=== PATIENT | female | born 1990 | race Caucasian/White ===

== ENCOUNTER 2021-07-17 07:34 | Observation (INO) ==
[2021-07-17] MEDS ORDERED: methylPREDNISolone 125 MG/2 ML VIAL IVP ONE (07:45)
[2021-07-17] MEDS ORDERED: Ipratropium/Albuterol Neb 3 ML IH ONE (07:45)
[2021-07-17] MEDS ORDERED: levoFLOXacin 750 MG/150 ML 750 MG/150 ML BAG IVPB ONE ×2 (07:45→11:49)
[2021-07-17 08:36] LABS: Basophils # 0.1 K/mcL (0.0-0.2); Basophils % 0.4 %; Eosinophils # 0.7 K/mcL (0.0-0.6); Hematocrit 42.3 % (35.3-44.9); Hemoglobin 13.6 g/dL (11.5-15.4); Immature Granulocytes % 0.3 % (0-4); Lymphocytes # 1.3 K/mcL (0.6-4.6); Mean Corpuscular HGB Conc 32.2 g/dL (31.6-35.5); Mean Corpuscular Hemoglobin 29.6 pg (28.0-33.3); Mean Corpuscular Volume 92.2 fL (83.0-100.0); Mean Platelet Volume 9.3 fL (9.4-12.4); Monocytes # 0.6 K/mcL (0.0-1.3); Monocytes % 4.7 %; Neutrophils # 9.5 K/mcL (1.6-8.9); Platelet Count 397 K/mcL (140-400); Red Blood Count 4.59 M/mcL (3.82-4.97); Red Cell Distribution Width 13.5 % (11.5-14.5); Segmented Neutrophils % 77.6 %; White Blood Count 12.2 K/mcL (4.3-11.1)
[2021-07-17 08:53] LABS: BUN/Creatinine Ratio 10 (6-26); Blood Urea Nitrogen 8 mg/dL (6-20); Calcium 9.8 mg/dL (8.6-10.3); Carbon Dioxide 26 mEq/L (23-29); Chloride 106 mEq/L (98-107); Glucose 109 mg/dL (70-105); Osmolality,Calculated 289 (280-300); Potassium 3.8 mEq/L (3.5-5.1); Sodium 140 mEq/L (136-145); Troponin I < 0.03 ng/mL (< 0.04); eGFR For African Americans > 60 (> 60); eGFR For Non-African Americans > 60 (> 60)
[2021-07-17 09:22] LABS: Bilirubin,Urine Negative (Negative); Blood,Urine Negative (Negative); Clarity,Urine Clear (Clear); Color,Urine Light-Yellow (Yellow); Glucose,Urine (UA) Normal (Normal); Ketones,Urine Negative (Negative); Leukocyte Esterase,Urine Negative (Negative); Nitrite,Urine Negative (Negative); Protein,Urine Negative (Neg-Trace); Specific Gravity,Urine 1.019 (1.010-1.025); Squamous Epithelial Cell,Urine Few per hpf (None-Few); Urobilinogen,Urine Normal (Normal); WBC,Urine 0-3 per hpf (0-3)
[2021-07-17 09:23] LABS: Adenovirus Not Detected (Not Detect); Bordetella Pertussis Not Detected (Not Detect); Chlamydophila pneumoniae Not Detected (Not Detect); Coronavirus 229E Not Detected (Not Detect); Coronavirus HKU1 Not Detected (Not Detect); Coronavirus NL63 Not Detected (Not Detect); Coronavirus OC43 Not Detected (Not Detect); Human Metapneumovirus Not Detected (Not Detect); Human Rhinovirus/Enterovirus Not Detected (Not Detect); Influenza A Subtype 2009 H1 Not Detected (Not Detect); Influenza B Not Detected (Not Detect); Mycoplasma pneumoniae Not Detected (Not Detect); Parainfluenza Virus 1 Not Detected (Not Detect); Parainfluenza Virus 2 Not Detected (Not Detect); Parainfluenza Virus 3 Not Detected (Not Detect); Parainfluenza Virus 4 Not Detected (Not Detect); Respiratory Syncytial Virus Not Detected (Not Detect); SARS-CoV-2 Not Detected (Not Detect)
[2021-07-17] MEDS ORDERED: Naloxone 0.4 MG/ML INJ IVP PRN (09:44)
[2021-07-17] MEDS ORDERED: Melatonin 3 MG TABLET PO PRN (10:42)
[2021-07-17] MEDS ORDERED: Ondansetron 4 MG/2 ML VIAL IVP PRN (10:42)
[2021-07-17] MEDS ORDERED: Saliva Stimulant 44.3ml BOTTLE PO PRN (10:44)
[2021-07-17] MEDS: Ipratropium/Albuterol Neb 3 ML IH SCH ×3 (11:11→20:02)
[2021-07-17] MEDS: Budesonide/Formoterol 160/4.5 1 PUFF INH IH SCH ×2 (11:11→20:02)
[2021-07-17 11:20] LABS: INR 1.1; Prothrombin Time 11.7 Seconds (9.4-12.1)
[2021-07-17 11:28] LABS: Magnesium 1.9 mg/dL (1.6-2.6); Phosphorous 3.2 mg/dL (2.7-4.5)
[2021-07-17] MEDS: MethylPREDNISolone 40 MG/ML VIAL IVP SCH ×2 (16:06→23:56)
[2021-07-17] MEDS: Chlorhexidine Rinse 15 ML MOUTHWASH MM SCH (21:04)
[2021-07-18] MEDS: Ipratropium/Albuterol Neb 3 ML IH SCH ×3 (00:02→07:38)
[2021-07-18] MEDS: *HR* Enoxaparin 40 MG/0.4 ML SYRINGE SQ SCH (05:11)
[2021-07-18] MEDS: Budesonide/Formoterol 160/4.5 1 PUFF INH IH SCH ×2 (07:38→20:04)
[2021-07-18 08:47] LABS: Basophils % 0.1 %; Lymphocytes % 1.9 %
[2021-07-18] MEDS: MethylPREDNISolone 40 MG/ML VIAL IVP SCH ×3 (08:47→23:54)
[2021-07-18] MEDS: Nicotine 21 MG PATCH.TD24 TD SCH (08:48)
[2021-07-18] MEDS: Chlorhexidine Rinse 15 ML MOUTHWASH MM SCH ×2 (08:48→20:07)
[2021-07-18] MEDS: BUPRENORPHINE HCL PO SCH (08:48)
[2021-07-18] MEDS: NALOXONE HCL PO SCH (08:48)
[2021-07-18 08:49] LABS: Hematocrit 39.7 % (35.3-44.9); Hemoglobin 13.3 g/dL (11.5-15.4); Immature Granulocytes % 0.5 % (0-4); Lymphocytes # 0.5 K/mcL (0.6-4.6); Mean Corpuscular HGB Conc 33.5 g/dL (31.6-35.5); Mean Corpuscular Hemoglobin 30.3 pg (28.0-33.3); Mean Corpuscular Volume 90.4 fL (83.0-100.0); Mean Platelet Volume 9.6 fL (9.4-12.4); Monocytes # 0.4 K/mcL (0.0-1.3); Monocytes % 1.3 %; Neutrophils # 27.5 K/mcL (1.6-8.9); Platelet Count 468 K/mcL (140-400); Red Blood Count 4.39 M/mcL (3.82-4.97); Red Cell Distribution Width 13.6 % (11.5-14.5); Segmented Neutrophils % 96.2 %; White Blood Count 28.6 K/mcL (4.3-11.1)
[2021-07-18 09:03] LABS: Alanine Aminotransferase 11 Units/L (7-52); Albumin 4.3 g/dL (3.5-5.7); Albumin/Globulin Ratio 1.4 (1.1-2.2); Alkaline Phosphatase 47 Units/L (34-104); Aspartate Amino Transferase 13 Units/L (13-39); BUN/Creatinine Ratio 18 (6-26); Bilirubin,Total 0.2 mg/dL (0.3-1.0); Blood Urea Nitrogen 13 mg/dL (6-20); Calcium 10.1 mg/dL (8.6-10.3); Carbon Dioxide 22 mEq/L (23-29); Chloride 104 mEq/L (98-107); Glucose 152 mg/dL (70-105); Magnesium 1.8 mg/dL (1.6-2.6); Osmolality,Calculated 287 (280-300); Phosphorous 2.1 mg/dL (2.7-4.5); Potassium 4.1 mEq/L (3.5-5.1); Sodium 137 mEq/L (136-145); Total Protein 7.3 g/dL (6.4-8.9); eGFR For African Americans > 60 (> 60); eGFR For Non-African Americans > 60 (> 60)
[2021-07-18] MEDS: Levalbuterol Neb 1.25 MG/3 ML IH SCH ×3 (10:10→20:04)
[2021-07-18] MEDS: Loratadine 10 MG TABLET PO SCH (12:15)
[2021-07-18] MEDS ORDERED: Acetaminophen 325 MG TABLET PO PRN (16:16)
[2021-07-19] MEDS: Levalbuterol Neb 1.25 MG/3 ML IH SCH ×2 (03:48→07:43)
[2021-07-19] MEDS: *HR* Enoxaparin 40 MG/0.4 ML SYRINGE SQ SCH (05:52)
[2021-07-19 06:44] LABS: Hematocrit 38.1 % (35.3-44.9); Mean Corpuscular HGB Conc 31.5 g/dL (31.6-35.5); Mean Corpuscular Hemoglobin 29.1 pg (28.0-33.3); Mean Corpuscular Volume 92.3 fL (83.0-100.0); Mean Platelet Volume 9.8 fL (9.4-12.4); Platelet Count 401 K/mcL (140-400); Red Blood Count 4.13 M/mcL (3.82-4.97); Red Cell Distribution Width 14.1 % (11.5-14.5); White Blood Count 22.8 K/mcL (4.3-11.1)
[2021-07-19 06:58] LABS: BUN/Creatinine Ratio 21 (6-26); Blood Urea Nitrogen 16 mg/dL (6-20); Calcium 9.7 mg/dL (8.6-10.3); Carbon Dioxide 25 mEq/L (23-29); Chloride 105 mEq/L (98-107); Glucose 130 mg/dL (70-105); Osmolality,Calculated 291 (280-300); Potassium 4.3 mEq/L (3.5-5.1); Sodium 139 mEq/L (136-145); eGFR For African Americans > 60 (> 60); eGFR For Non-African Americans > 60 (> 60)
[2021-07-19 07:28] VITALS: BP 128/66; PULSE 65; TEMP 97.9
[2021-07-19] MEDS: Budesonide/Formoterol 160/4.5 1 PUFF INH IH SCH (07:43)
[2021-07-19] MEDS: MethylPREDNISolone 40 MG/ML VIAL IVP SCH (08:03)
[2021-07-19] MEDS: Chlorhexidine Rinse 15 ML MOUTHWASH MM SCH (08:03)
[2021-07-19] MEDS: Nicotine 21 MG PATCH.TD24 TD SCH (08:03)
[2021-07-19] MEDS: Loratadine 10 MG TABLET PO SCH (08:03)
[2021-07-19] MEDS: NALOXONE HCL PO SCH (08:09)
[2021-07-19] MEDS: BUPRENORPHINE HCL PO SCH (08:09)
[2021-07-19 14:22] VITALS: O2SAT 100
== END 2021-07-19 10:16 | disposition home or self-care (01) ==
LOC: EMEROOARM 07:34 → 3BNU 07:34 → SUATTDRO 11:07 → 3BNU 12:35
PROVIDERS: ADMIT Internal Medicine; ATTEND Internal Medicine